=== PATIENT | female | born 1990 | race African-American/Black ===

== ENCOUNTER 2019-08-05 08:33 | Emergency (ER) | payer OTHER ==
[~2019-08-05] VITALS: Ht 172.7 cm; Wt 82.0 kg
[2019-08-05] MEDS ORDERED: CARB100T4 PO (08:37)
[2019-08-05] MEDS ORDERED: KETOROLAC 30MG/ML VIAL IV ONE (10:45)
[2019-08-05] MEDS ORDERED: METOCLOPRAMIDE HCL 10MG/2ML VIAL IV ONE (10:45)
[2019-08-05 11:29] LABS: CHLORIDE 109 mEq/L (98-107)
[2019-08-05 11:31] LABS: CLARITY URINE CLOUDY (CLEAR); COLOR URINE YELLOW (YELLOW); KETONES URINE TRACE (NEGATIVE); LEUKOCYTE ESTERASE URINE NEGATIVE (NEGATIVE); NITRITE URINE NEGATIVE (NEGATIVE); OCCULT BLOOD URINE NEGATIVE (NEGATIVE); PH URINE 7.5 (4.5-8.0); PROTEIN URINE NEGATIVE (NEGATIVE); SPECIFIC GRAVITY URINE 1.019 (1.005-1.030)
[2019-08-05 11:35] LABS: ETHANOL BLOOD < 10 mg/dL
[2019-08-05 11:39] LABS: BASOPHILS % 0.9 % (0.0-2.0); EOSINOPHILS % 5.6 % (0.0-5.0); HEMATOCRIT. 44.2 % (36.0-48.0); LYMPHOCYTES % 13.4 % (20.0-50.0); MEAN CORPUSCULAR VOLUME 94.3 fL (81.0-99.0); MONOCYTES % 12.6 % (2.0-8.0); NEUTROPHILS % 67.5 % (40.0-76.0); RED BLOOD CELL COUNT 4.69 mill/uL (4.2-5.4); RED CELL DISTRIBUTION WIDTH 13.7 % (11.6-14.6)
[2019-08-05 11:42] LABS: CARBAMAZEPINE 7.2 ug/mL (4-12)
[2019-08-05 11:46] LABS: *AMPHETAMINES SCREEN URINE NEGATIVE (NEGATIVE); *BARBITURATES SCREEN URINE NEGATIVE (NEGATIVE); *COCAINE SCREEN URINE NEGATIVE (NEGATIVE)
[2019-08-05 11:47] LABS: *BENZODIAZEPINES SCREEN URINE NEGATIVE (NEGATIVE); METHADONE URINE SCREEN NEGATIVE (NEGATIVE); OPIATES URINE SCREEN NEGATIVE (NEGATIVE); PHENCYCLIDINE URINE SCREEN NEGATIVE (NEGATIVE)
[2019-08-05 11:49] LABS: CANNABINOID URINE SCREEN PRESUMTIVE POSITIVE (NEGATIVE)
[2019-08-05 12:41] VITALS: BP 134/87
[2019-08-05 13:57] LABS: PLATELET 269 x1000/uL (130-400)
== END 2019-08-05 12:44 | disposition home or self-care (01) ==
LOC: ER 09:21
DX: G40.909 Epilepsy, unspecified, not intractable, without status epilepticus (principal); R51 Headache; R03.0 Elevated blood-pressure reading, without diagnosis of hypertension; F12.90 Cannabis use, unspecified, uncomplicated
CPT/HCPCS: 36415; 80053; 80156; 80305; 80320; 81003; 81025; 82962; 85025; 96374; 96375; 99283; J1885; J2765; G0480

== ENCOUNTER 2019-09-08 18:19 | Emergency (ER) | payer OTHER ==
[~2019-09-08] VITALS: Ht 170.2 cm; Wt 73.0 kg
[~2019-09-08 18:19] MED LIST: CARB100T4 PO
[2019-09-08] MEDS ORDERED: MORPHINE SULFATE 4 MG/ML CPJ (NOT FOR IM USE) IV STA (18:42)
[2019-09-08] MEDS ORDERED: SODIUM CHLORIDE 0.9% 1,000 ML IV ONE (18:42)
[2019-09-08] MEDS ORDERED: ONDANSETRON HCL 4MG/2ML INJ IV STA (18:42)
[2019-09-08] MEDS ORDERED: LEVETIRACETAM 500MG PREMIX 100 ML IV ONE (18:45)
[2019-09-08 19:56] LABS: BASOPHILS % 0.2 % (0.0-2.0); EOSINOPHILS % 0.2 % (0.0-5.0); HEMATOCRIT. 38.2 % (36.0-48.0); HEMOGLOBIN. 12.9 g/dL (12.0-16.0); LYMPHOCYTES % 8.5 % (20.0-50.0); MEAN CORPUSCULAR HEMOGLOBIN 32.1 pg (28.0-32.0); MEAN PLATELET VOLUME 7.7 fl (7.4-10.4); MONOCYTES % 5.3 % (2.0-8.0); NEUTROPHILS % 85.8 % (40.0-76.0); PLATELET 290 x1000/uL (130-400); RED BLOOD CELL COUNT 4.02 mill/uL (4.2-5.4); RED CELL DISTRIBUTION WIDTH 14.2 % (11.6-14.6)
[2019-09-08 20:02] LABS: CHLORIDE 111 mEq/L (98-107)
[2019-09-08 20:06] LABS: ETHANOL BLOOD < 10 mg/dL
[2019-09-08 20:09] LABS: CARBAMAZEPINE 1.2 ug/mL (4-12)
[2019-09-08 20:50] LABS: CLARITY URINE CLOUDY (CLEAR); COLOR URINE YELLOW (YELLOW); KETONES URINE NEGATIVE (NEGATIVE); LEUKOCYTE ESTERASE URINE NEGATIVE (NEGATIVE); NITRITE URINE NEGATIVE (NEGATIVE); OCCULT BLOOD URINE 2+ (NEGATIVE); PROTEIN URINE TRACE (NEGATIVE); UROBILINOGEN URINE 0.2 E.U./dL (0.2-1.0)
[2019-09-08 21:01] LABS: *AMPHETAMINES SCREEN URINE NEGATIVE (NEGATIVE); *BARBITURATES SCREEN URINE NEGATIVE (NEGATIVE); *BENZODIAZEPINES SCREEN URINE NEGATIVE (NEGATIVE); *COCAINE SCREEN URINE NEGATIVE (NEGATIVE)
[2019-09-08 21:02] LABS: METHADONE URINE SCREEN NEGATIVE (NEGATIVE); PHENCYCLIDINE URINE SCREEN NEGATIVE (NEGATIVE)
[2019-09-08 21:07] LABS: CANNABINOID URINE SCREEN PRESUMTIVE POSITIVE (NEGATIVE); OPIATES URINE SCREEN PRESUMTIVE POSITIVE (NEGATIVE)
[2019-09-08 21:34] VITALS: BP 135/88
== END 2019-09-08 21:54 | disposition home or self-care (01) ==
LOC: ER 18:19
DX: G40.909 Epilepsy, unspecified, not intractable, without status epilepticus (principal); R51 Headache; M54.2 Cervicalgia
CPT/HCPCS: 36415; 70450; 72125; 80053; 80156; 80305; 80320; 81003; 81025; 85025; 93005; 96374; 96375; 99285; J2270; J2405; J7030; G0480

== ENCOUNTER 2021-06-27 00:25 | Emergency (ER) | payer OTHER ==
[~2021-06-27] VITALS: Ht 165.1 cm; Wt 96.0 kg
[2021-06-27 00:39] VITALS: BP 134/83
[2021-06-27 02:41] LABS: CHLORIDE 113 mEq/L (98-107)
[2021-06-27 02:52] LABS: BASOPHILS % 0.5 % (0.0-2.0); EOSINOPHILS % 2.4 % (0.0-5.0); HEMATOCRIT. 27.3 % (36.0-48.0); LYMPHOCYTES % 19.4 % (20.0-50.0); MEAN CORPUSCULAR HEMOGLOBIN 27.2 pg (28.0-32.0); MEAN CORPUSCULAR VOLUME 82.9 fL (81.0-99.0); MEAN PLATELET VOLUME 7.1 fl (7.4-10.4); NEUTROPHILS % 70.7 % (40.0-76.0); PLATELET 488 x1000/uL (130-400); RED BLOOD CELL COUNT 3.29 mill/uL (4.2-5.4); RED CELL DISTRIBUTION WIDTH 17.3 % (11.6-14.6)
== END 2021-06-27 04:30 | disposition home or self-care (01) ==
LOC: ER 00:25
DX: M79.89 Other specified soft tissue disorders (principal); R06.02 Shortness of breath; I10 Essential (primary) hypertension; Z86.59 Personal history of other mental and behavioral disorders; Z98.890 Other specified postprocedural states
CPT/HCPCS: 36415; 71045; 80053; 83880; 84484; 85025; 93005; 99285